=== PATIENT | male | born 1955 | race Caucasian/White ===

== ENCOUNTER 2016-11-27 01:50 | Emergency (ER) | payer SELFPAY ==
[~2016-11-27] VITALS: Ht 172.7 cm; Wt 76.2 kg
[2016-11-27 02:10] VITALS: BP 183/87; PULSE 84; RESP 16; O2SAT 96
[2016-11-27] MEDS ORDERED: LIDOCAINE HCL 1% PF 30 ML VIAL INFIL ONE (02:15)
[2016-11-27] MEDS ORDERED: TETANUS/DIPHTHERIA TOXOID ADULT 0.5 ML VIAL IM ONE (02:15)
[2016-11-27] MEDS ORDERED: [UNRECOGNIZED DRUG - OTHER] (02:17)
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
[2016-11-27 03:18] VITALS: BP 165/84; PULSE 84; RESP 18; O2SAT 97
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
== END 2016-11-27 04:06 | disposition home or self-care (01) ==
LOC: PHED 01:50
DX: S01.01XA Laceration without foreign body of scalp, initial encounter (principal); S80.212A Abrasion, left knee, initial encounter; S80.211A Abrasion, right knee, initial encounter; Z23 Encounter for immunization; X99.8XXA Assault by other sharp object, initial encounter; Y93.9 Activity, unspecified; Y92.9 Unspecified place or not applicable; Y99.8 Other external cause status
CPT/HCPCS: 12002; 70450; 90471; 90714